=== PATIENT | male | born 1970 | race Caucasian/White ===

== ENCOUNTER → 2016-12-31 | Outpatient (CLI) | payer MEDICARE ==
--- NOTE | 2016-12-31 20:26 | CT ---
EXAMINATION TYPE: CT soft tissue neck w con DATE OF EXAM: 12/31/2016 7:56 PM COMPARISON: NONE HISTORY: Mid to right anterior neck mass. CT DLP: 584.00 mGycm Automated exposure control for dose reduction was used. CONTRAST: CT scan of the neck is performed following with IV Contrast, patient injected with 100 mL of Omnipaqu e 300. Axial images are obtained, coronal and sagittal reformatted images are reviewed. FINDINGS: There is normal branching pattern of the great vessels on the aortic arch. There is bilateral arteria l flow in the vertebral arteries. There is patency of the carotid arteries and jugular veins. Thyroid gland is symmetric. There is no evidence of a pharyngeal mass. Epiglottis appears normal. The tonsil s and adenoids appear normal. There is opacification of the right side of the frontal sinus. There is no sign of an orbital mass. There is some dural calcification over the right frontal lobe. There is some enlargement of the ventricles. There are a few anterior triangle right cervical lymph nodes. There is a posterior triangle cervical lymph node on the left side. Lymph nodes measure up to 10 mm. Parotid glands are symmetric. Submandibular salivary glands are symmetric. IMPRESSION: There are a few cervical lymph nodes of doubtful significance. Right frontal sinusitis. Dural calcification and thinning of the inner table over the right frontal l obe of uncertain significance. Normal pressure type hydrocephalus. Comparison with an old exam would be helpful.
== END | disposition home or self-care (01) ==
LOC: RADCTMAIN 19:12 → EEVIPCON 19:40
PROVIDERS: ATTEND Internal Medicine
DX: R22.1 Localized swelling, mass and lump, neck (principal)
CPT/HCPCS: 70491; Q9967

== ENCOUNTER 2017-12-05 16:11 | Inpatient (IN) | payer MEDICARE ==
--- NOTE | 2017-12-05 16:20 | ED ---
General Adult HPI - General Stated complaint: Fall - History of Present Illness Initial comments: Dictation was produced using [employer] dictation software. please excuse any grammatical, word or spelling errors. Chief Complaint: 46-year-old male presents via transfer from [facility] for left hip fracture History of Present Illness: Suffered a fall approximately 11:30 AM today. He tripped that of his family members car. He states that he had severe pain to his left hip. He was brought to [facility] ER were x-rays and CTs were obtained. He did have findings of subcapital fracture on CT imaging. He was transferred here for higher level of care given that we have orthopedic surgery The ROS documented in this emergency department record has been reviewed and confirmed by me. Those systems with pertinent positive or negative responses have been documented in the HPI. All other systems are other negative and/or noncontributory. - Related Data Home Medications Medication Instructions Recorded Confirmed Doxycycline [Vibramycin] 50 mg PO DAILY 12/05/17 12/05/17 QUEtiapine [SEROquel] 50 mg PO BID 12/05/17 12/05/17 Sertraline [Zoloft] 200 mg PO DAILY 12/05/17 12/05/17 amLODIPine BESYLATE/BENAZEPRIL 1 cap PO DAILY 12/05/17 12/05/17 [Lotrel 5-20 mg Capsule] carBAMazepine [TEGretol] 300 mg PO BID@1200,1800 12/05/17 12/05/17 carBAMazepine [TEGretol] 400 mg PO QAM 12/05/17 12/05/17 Allergies Allergy/AdvReac Type Severity Reaction Status Date / Time adhesive tape Allergy Unknown Rash/Hives Verified 12/05/17 16:39 Penicillins Allergy Rash/Hives Verified 12/05/17 16:39 Review of Systems ROS Statement: Those systems with pertinent positive or pertinent negative responses have been documented in the HPI. ROS Other: All systems not noted in ROS Statement are negative. General Exam - General Exam Comments Initial Comments: PHYSICAL EXAM: General Impression: Alert and oriented x3, not in acute distress HEENT: Normocephalic atraumatic, extra-ocular movements intact, pupils equal and reactive to light bilaterally, mucous membranes moist. Cardiovascular: Heart regular rate and rhythm, S1&S2 audible, no murmurs, rubs or gallops Chest: Lungs clear to auscultation bilaterally, no rhonchi, no wheeze, no rales Abdomen: Bowel sounds present, abdomen soft, non-tender, non-distended, no organomegaly Musculoskeletal: Pulses present and equal in all extremities, no peripheral edema, tenderness to palpation over the left hip, mildly shortened left lower extremity. Neurovascularly intact Motor: Power 5/5 bilaterally, no focal deficits noted Neurological: CN II-XII grossly intact, no focal motor or sensory deficits noted Skin: Intact with no visualized rashes Psych: Normal affect and mood Course Vital Signs 12/05/17 12/05/17 16:16 17:26 Temperature 100.5 F H 101.0 F H Pulse Rate 91 91 Respiratory 18 16 Rate Blood Pressure 138/84 O2 Sat by Pulse 97 98 Oximetry Medical Decision Making - Medical Decision Making ED course: 46-year-old male with clinical presentation of left hip fracture. Vital signs upon arrival shows low-grade temperature 100.5. Rest of vital signs unremarkable. Preop labs were obtained. CBC unremarkable. Metabolic panel unremarkable. Pending coag panel. Local x-ray was obtained showing subcapital fracture of left proximal femur. Dr. Renee from orthopedic surgeries at bedside with plans for operative intervention and internal medicine to be on consult. Repeat vital signs were obtained showing increased fever. It is unclear what is causing his fever at this time. Blood cultures and urine cultures were obtained. She denies any coughing or chest pain symptoms. No emergency indication At this time. Admitted to orthopedic surgery with internal medicine on consult - Lab Data Result diagrams: 12/05/17 16:51 12/05/17 16:51 Lab Results 12/05/17 12/05/17 Range/Units 16:51 16:51 WBC 9.6 (3.8-10.6) k/uL RBC 4.49 (4.30-5.90) m/uL Hgb 12.9 L (13.0-17.5) gm/dL Hct 38.8 L (39.0-53.0) % MCV 86.3 (80.0-100.0) fL MCH 28.8 (25.0-35.0) pg MCHC 33.3 (31.0-37.0) g/dL RDW 13.1 (11.5-15.5) % Plt Count 218 (150-450) k/uL Neutrophils % 82 % Lymphocytes % 11 % Monocytes % 5 % Eosinophils % 1 % Basophils % 0 % Neutrophils # 7.9 H (1.3-7.7) k/uL Lymphocytes # 1.1 (1.0-4.8) k/uL Monocytes # 0.5 (0-1.0) k/uL Eosinophils # 0.1 (0-0.7) k/uL Basophils # 0.0 (0-0.2) k/uL Sodium 139 (137-145) mmol/L Potassium 3.9 (3.5-5.1) mmol/L Chloride 106 (98-107) mmol/L Carbon Dioxide 25 (22-30) mmol/L Anion Gap 8 mmol/L BUN 13 (9-20) mg/dL Creatinine 0.72 (0.66-1.25) mg/dL Est GFR (CKD-EPI)AfAm >90 (>60 ml/min/1.73 sqM) Est GFR (CKD-EPI)NonAf >90 (>60 ml/min/1.73 sqM) Glucose 111 H (74-99) mg/dL Calcium 8.6 (8.4-10.2) mg/dL Disposition Clinical Impression: Fracture of hip Disposition: ADMITTED IP TO THIS HOSP Referrals: Edson Rangel MD [Primary Care Provider] - 1-2 days Decision Time: 18:06
[2017-12-05 16:58] LABS: Basophils % (A) 0 %; Eosinophils # (A) 0.1 k/uL (0-0.7); Eosinophils % (A) 1 %; HCT 38.8 % (39.0-53.0); HGB 12.9 gm/dL (13.0-17.5); Lymphocytes # (A) 1.1 k/uL (1.0-4.8); Lymphocytes % (A) 11 %; MCH 28.8 pg (25.0-35.0); MCHC 33.3 g/dL (31.0-37.0); MCV 86.3 fL (80.0-100.0); Mean Platelet Volume 6.8; Monocytes # (A) 0.5 k/uL (0-1.0); Monocytes % (A) 5 %; Neutrophils # (A) 7.9 k/uL (1.3-7.7); Neutrophils % (A) 82 %; Platelet Count 218 k/uL (150-450); RBC 4.49 m/uL (4.30-5.90); RDW 13.1 % (11.5-15.5); WBC 9.6 k/uL (3.8-10.6)
[2017-12-05 17:06] LABS: Anion Gap 8 mmol/L; Blood Urea Nitrogen 13 mg/dL (9-20); Calcium 8.6 mg/dL (8.4-10.2); Carbon Dioxide 25 mmol/L (22-30); Chloride 106 mmol/L (98-107); Glucose 111 mg/dL (74-99); Potassium 3.9 mmol/L (3.5-5.1); Sodium 139 mmol/L (137-145)
[2017-12-05 17:15] LABS: INR 1.1 (<1.2); Prothrombin Time 10.7 sec (9.0-12.0)
--- NOTE | 2017-12-05 17:15 | XR ---
EXAMINATION TYPE: XR Hip Limited LT DATE OF EXAM: 12/05/2017 CLINICAL HISTORY: Fall injury with pain. TECHNIQUE: Single frontal view of the left hip is obtained. COMPARISON: Outside pelvic x-ray earlier today. FINDINGS: There is redemonstration of acute subcapital fracture with impaction of the left proximal femur. No hip joint dislocation is evident. The overlying soft tissue appears unremarkable. IMPRESSION: There is an acute impacted subcapital fracture left proximal femur. (Initial encounter close type post traumatic fracture)
[2017-12-05 18:20] LABS: Appearance,Urine Clear (Clear); Bilirubin,Urine Negative (Negative); Blood,Urine Negative (Negative); Color,Urine Yellow; Glucose,Urine (UA) Negative (Negative); Ketones,Urine Negative (Negative); Leukocyte Esterase,Urine Negative (Negative); Nitrite,Urine Negative (Negative); PH, Urine 5.5 (5.0-8.0); Protein,Urine Negative (Negative); Specific Gravity,Urine 1.014 (1.001-1.035); Urobilinogen,Urine <2.0 mg/dL (<2.0)
[2017-12-05] MEDS ORDERED: NALOXONE 0.4 MG/ML 1 ML VIAL IV PRN (18:31)
--- NOTE | 2017-12-05 18:58 | XR ---
EXAMINATION TYPE: XR chest 2V DATE OF EXAM: 12/05/2017 COMPARISON: NONE HISTORY: Presurgical study. New hip fracture. TECHNIQUE: Frontal and lateral views of the chest are obtained. FINDINGS: There is no focal air space opacity, pleural effusion, or pneumothorax seen. The cardiac silhouette size is within normal limits. Advanced degenerative change left glenohumeral joint is note d. IMPRESSION: No acute cardiopulmonary process.
[2017-12-05] MEDS ORDERED: ACETAMINOPHEN TAB 500 MG TAB PO STA (19:01)
[2017-12-05] MEDS ORDERED: HYDROcodone/APAP 5-325MG 1 EACH TAB PO PRN (20:24)
[2017-12-05] MEDS ORDERED: MAGNESIUM HYDROXIDE 2,400 MG/10 ML CUP PO PRN (20:24)
[2017-12-05] MEDS ORDERED: MORPHINE SULFATE 4 MG/ML SYRINGE IV PRN (20:24)
[2017-12-05] MEDS ORDERED: ONDANSETRON 4 MG/2 ML VIAL IVP PRN (20:24)
[2017-12-05] MEDS ORDERED: MAG HYDROX/AL HYDROX/SIMETH 30 ML CUP PO PRN (20:24)
[2017-12-05] MEDS ORDERED: DOCUSATE 100 MG CAP PO PRN (20:24)
--- NOTE | 2017-12-05 21:05 | P.CONS ---
History of Present Illness - Reason for Consult Medical management and preoperative evaluation - Chief Complaint Fall and left hip fracture - History of Present Illness This is a 46-year-old male who has history of traumatic brain injury since childhood and subsequent epilepsy, hypertension who was admitted after he sustained accidental fall and left hip fracture. Patient was in his usual state of health when he today tripped and fell. There was no loss of consciousness chest pain or shortness of breath described. There was no head injury described. He suffered immediate left hip pain and was was not able to get up or bear weight. He was transferred to emergency department where x-ray showed a left hip subcapital fracture of the femur. He is admitted for surgical intervention tomorrow. Emergency Department his blood work showed normal CBC and electrolytes and renal function. His blood pressure was in 150s range with normal heart rate. He was found to be and elevated temperature of 100.1-101 without any tachycardia or shakes or regular described. Chest x-ray was unremarkable. EKG is currently pending. He patient himself denies any particular complaints. More specifically he denies any headache or sore throat nonfocal congestion recent illnesses, neck pain, shortness of breath, cough, wheezing, chest pain or palpitations, pain with deep breaths, abdominal pain, nausea or vomiting, diarrhea or constipation , pain in the stoma or the right upper quadrant with food, testicular pain swelling or penile discharge, skin rashes or any joint pain or swelling except the pain in the left hip. He denies any night sweats, weight or appetite losses , sick contacts, shakes chills or rigors. Patient does not have any significant cardiac or pulmonary history. He has hypertension which is taking amlodipine.. He denies any chest pain or shortness of breath. He states that he can usually normally climb one or 2 flights of stairs and walk around quite a bit without any shortness of breath. He does not take any aspirin. He is a lifelong nonsmoker. Not have history of asthma. His home list of medications shows Tegretol, Review of Systems REVIEW OF SYSTEMS: CONSTITUTIONAL: No fever or chills HEENT: No changes in vision or voice CARDIOVASCULAR: no chest pain or abnormal heart beats, or any swelling in ankles or feet. RESPIRATORY: No wheezing or coughing. GASTROINTESTINAL: No abdominal pain, no nausea no vomiting no constipation or diarrhea GENITOURINARY: no any urinary urgency, frequency or burning, and there has been no blood in her urine. no flank pain. MUSCULOSKELETAL: Except left hip he notes full range of motion of all her joints without pain or swelling. NEUROLOGICAL: , no headache. no vision changes, or fainting. No numbness or tingling. Past Medical History Past Medical History: Hypertension, Seizure Disorder Additional Past Medical History / Comment(s): hip dysplasia History of Any Multi-Drug Resistant Organisms: None Reported Past Surgical History: No Surgical Hx Reported Past Anesthesia/Blood Transfusion Reactions: No Reported Reaction Past Psychological History: No Psychological Hx Reported Smoking Status: Never smoker Past Alcohol Use History: None Reported Past Drug Use History: None Reported Medications and Allergies Home Medications Medication Instructions Recorded Confirmed Type Doxycycline [Vibramycin] 50 mg PO DAILY 12/05/17 12/05/17 History QUEtiapine [SEROquel] 50 mg PO BID 12/05/17 12/05/17 History Sertraline [Zoloft] 200 mg PO DAILY 12/05/17 12/05/17 History amLODIPine BESYLATE/BENAZEPRIL 1 cap PO DAILY 12/05/17 12/05/17 History [Lotrel 5-20 mg Capsule] carBAMazepine [TEGretol] 300 mg PO BID@1500,2200 12/05/17 12/05/17 History carBAMazepine [TEGretol] 400 mg PO QAM 12/05/17 12/05/17 History Allergies Allergy/AdvReac Type Severity Reaction Status Date / Time adhesive tape Allergy Unknown Rash/Hives Verified 12/05/17 16:39 Penicillins Allergy Rash/Hives Verified 12/05/17 16:39 Physical Exam Vitals: Vital Signs Temp Pulse Resp BP Pulse Ox 12/05/17 19:06 100.2 F H 98 18 151/94 95 12/05/17 17:26 101.0 F H 91 16 98 12/05/17 16:16 100.5 F H 91 18 138/84 97 Intake and Output 12/05/17 12/05/17 12/05/17 06:59 14:59 22:59 Other: Weight 95.254 kg Vital Signs: I have reviewed the vital signs. GENERAL: Well-nourished, Well-developed , no apparent distress, cooperative Eyes: PERRL, extraoculry movements intact, clear conjunctiva Head: : Atraumatic external nose and ears, oropharyngeal mucosa is moist without lesions or exudates Neck: Symmetric, trachea midline, No thyromegaly, no masses or neck vain pulsation, no neck rigidity CVS: +S1/S2, No murmurs or gallops. Peripheral pulses 2+ and equal in all extremities. RESP: Unlabored respiratory effort. Clear to auscultation bilaterally. Abdomen: Bowel sounds present in all 4 quadrants, Soft to palpation, Nontender/ Nondistended, No hepatosplenomegaly, no hernias or masses, no CVA tnderness Musculoskeletal: Extremities w/o deformity, No cyanosis or clubbing, no joint swelling Skin: Warm, Dry. No rashes or lesions Neuro: infrastructure tech II-XII grossly intact, motor strenght 5/5 i upper and lower extremities, no clonus, he does have some involuntary myoclonic movements Psych: Awake, Alert, & Oriented (AAO) x3 Appropriate mood and affect Results CBC & Chem 7: 12/05/17 16:51 12/05/17 16:51 Labs: Abnormal Lab Results - Last 24 Hours (Table) 12/05/17 12/05/17 Range/Units 16:51 16:51 Hgb 12.9 L (13.0-17.5) gm/dL Hct 38.8 L (39.0-53.0) % Neutrophils # 7.9 H (1.3-7.7) k/uL Glucose 111 H (74-99) mg/dL Abdominal x-ray: report reviewed Assessment and Plan Plan: 1. Left hip fracture status post accidental fall Pain control Physical and occupational therapy DVT prophylaxis Plan for orthopedic intervention tomorrow Patient does not have any active cardiopulmonary symptoms. His functional status is good. His past medical history does not reveal any history of cardiac or pulmonary diseases. He is scheduled for moderate risk surgical intervention. From internal medicine standpoint , Patient is at acceptable risk and may proceed with the planned surgical intervention. We'll continue his antihypertensive therapy. He does not have indications for beta blockage therapy. 2. Hypertension Elevated blood pressure due to stress and pain and he missed his amlodipine this morning We'll continue his amlodipine 3. Epilepsy Continue Tegretol 4. History of traumatic brain injury He may continue his Seroquel at this point of time and we will hold his Zoloft before surgery and may resume after Patient is a full code History the decision-maker is his mother Expected length of stay 2 or more midnights Time with Patient: Greater than 30
[2017-12-05] MEDS: carBAMazepine 200 MG TAB PO SCH (21:06)
[2017-12-05] MEDS: QUEtiapine 50 MG TAB PO SCH (21:06)
--- NOTE | 2017-12-05 22:19 | HP ---
HISTORY AND PHYSICAL CHIEF COMPLAINT: Left hip pain. HISTORY OF PRESENT ILLNESS: The patient is a 46-year-old gentleman who presents after falling today after he tripped. He was unable to bear weight after the injury on the left leg. His family notes he ambulates minimally. PAST MEDICAL HISTORY: Significant for closed head injury with subsequent seizure disorder. PAST SURGICAL HISTORY: Significant for previous tendon release, cranial surgery for osteomyelitis, status post shunt, and previous tracheotomy x2. CURRENT MEDICATIONS: Are reviewed. ALLERGIES: ALSO, HE HAS ALLERGIES TO PENICILLIN AND ADHESIVE TAPE. SOCIAL HISTORY: Negative for current tobacco or alcohol use. He does live with his parents. FAMILY HISTORY: Family history is noncontributory. REVIEW OF SYSTEMS: Sixteen point review of systems otherwise reviewed and is noncontributory. PHYSICAL EXAMINATION: On examination, the patient currently has a temperature of 101.0 with stable vital signs. He is in mild distress secondary to left hip pain. He is nontender about the cervical, thoracic, and lumbar spine. He has a flexion contracture of the left elbow and wrist. He does have atrophy of the left lower extremity. He has pain with log roll of the left hip. There is mild shortening of the left hip. He has no pain with log roll of the right hip. He is nontender about both knees, ankles and feet. X-rays and CT scan of the left hip show a valgus impacted left subcapital femoral neck fracture. IMPRESSION: 1. Left impacted-displaced subcapital femoral neck fracture. 2. History of seizure disorder. 3. History of closed head injury with left upper extremity contracture and atrophy of the left lower extremity. RECOMMENDATIONS: I talked to the patient and his family at length regarding his condition and treatment options. At this point, his options include closed reduction and pinning versus hemiarthroplasty versus total hip arthroplasty. With his current level of function, they opted to proceed with hemiarthroplasty. We will likely proceed with that tomorrow if medically stable. We will ask for preoperative medical clearance as well as perform the appropriate preoperative testing. MMODL / IJN: [id number] /
[2017-12-06] MEDS: LACTATED RINGERS 1,000 ML IV SCH ×2 (02:49→08:57)
[2017-12-06] MEDS: carBAMazepine 200 MG TAB PO SCH ×3 (08:17→21:27)
[2017-12-06 08:25] LABS: Basophils % (A) 0 %; Eosinophils % (A) 0 %; HGB 11.9 gm/dL (13.0-17.5); Lymphocytes # (A) 1.1 k/uL (1.0-4.8); Lymphocytes % (A) 19 %; MCH 28.1 pg (25.0-35.0); MCHC 32.3 g/dL (31.0-37.0); Mean Platelet Volume 6.8; Monocytes # (A) 0.3 k/uL (0-1.0); Monocytes % (A) 6 %; Neutrophils # (A) 4.1 k/uL (1.3-7.7); Neutrophils % (A) 74 %; Platelet Count 192 k/uL (150-450); RBC 4.25 m/uL (4.30-5.90); RDW 12.9 % (11.5-15.5); WBC 5.6 k/uL (3.8-10.6)
[2017-12-06 08:33] LABS: Anion Gap 6 mmol/L; Blood Urea Nitrogen 11 mg/dL (9-20); Calcium 8.4 mg/dL (8.4-10.2); Carbon Dioxide 26 mmol/L (22-30); Chloride 108 mmol/L (98-107); Glucose 95 mg/dL (74-99); Potassium 3.8 mmol/L (3.5-5.1); Sodium 140 mmol/L (137-145)
[2017-12-06] MEDS: HEPARIN SODIUM,PORCINE 5,000 UNIT/ML 1 ML VIAL SQ SCH ×2 (09:05→16:23)
[2017-12-06] MEDS: QUEtiapine 50 MG TAB PO SCH ×2 (09:05→21:27)
[2017-12-06] MEDS: LISINOPRIL 20 MG TAB PO SCH (09:05)
[2017-12-06] MEDS: amLODIPine 5 MG TAB PO SCH (09:05)
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
[2017-12-06] MEDS ORDERED: LIDOCAINE 1% INJ 10MG/ML (20 ML MDV) ONE (11:16)
[2017-12-06] MEDS ORDERED: MIDAZOLAM 2 MG/2 ML VIAL ONE (11:16)
[2017-12-06] MEDS ORDERED: LACTATED RINGERS 1,000 ML IV ONE ×2 (11:16→12:21)
[2017-12-06] MEDS ORDERED: SUCCINYLCHOLINE CHLORIDE 100 MG/5 ML SYR IV ONE (11:16)
[2017-12-06] MEDS ORDERED: PROPOFOL 10 MG/ML 20 ML VIAL IV ONE (11:16)
[2017-12-06] MEDS ORDERED: PHENYLEPHRINE-0.9% NACL SYG 1 MG/10 ML SYRINGE ONE (11:16)
[2017-12-06] MEDS ORDERED: fentaNYL (PF) 50 MCG/ML 2 ML AMP ONE (11:16)
[2017-12-06] MEDS ORDERED: SODIUM CHLORIDE 0.9% 50 ML with ceFAZolin 2,000 MG IV ONE ×2 (11:57)
[2017-12-06] MEDS ORDERED: ceFAZolin 3,000 MG in SODIUM CHLORIDE 0.9% IRRIGATIO 3,000 ML IRRIGATION ONE (12:12)
--- NOTE | 2017-12-06 13:23 | P.OP ---
Date of Procedure: 12/06/17 Preoperative Diagnosis: Displaced left subcapital femoral neck fracture Postoperative Diagnosis: Same Procedure(s) Performed: Left hip jkmdyghnfboiyoni-niweg-dya Implants: Depuy Corail size 10 press-fit collared femoral stem, -3 neck, 47 mm unipolar head. Anesthesia: KALPESH Surgeon: Lobo Renee Signal Timer #1: Fidel Umanzor Estimated Blood Loss (ml): 75 Pathology: other (Femoral head) Condition: stable Disposition: PACU Indications for Procedure: The patient is a 46-year-old male who presents after falling injuring his left hip. He ambulates minimally and has a history of a closed head injury. Upon evaluation he is noted to have a displaced left subcapital femoral neck fracture. He discussion of the risks and benefits of operative intervention was made with the patient and his family. They opted to proceed. Operative options were discussed to include closed reduction and pinning, hemiarthroplasty , versus total hip arthroplasty. With his functional level, and the degree of initial displacement I recommended proceeding with hemiarthroplasty. Specific risks of the procedure to include infection, neurovascular injury, development of blood clots, possible leg length discrepancy, possible dislocation need for subsequent procedures was discussed. Informed consent was obtained. Operative Findings: As below Description of Procedure: The patient was brought to the operating room, and a spinal anesthetic was attempted. This was unsuccessful therefore he underwent general anesthetic. He was then placed in the lateral decubitus position with the pelvis stabilized perpendicular to the floor with a pegboard. The bony prominences were appropriately padded. The left hip was prepped and draped in normal fashion. A 12 cm incision was then made centered over the greater trochanter extending distally in line with the femoral shaft and proximally to level ASIS. The skin and subcu changed tissues were divided sharply. Electrocautery was used for hemostasis. The fascia paola and gluteus herlinda fascia was split in line with the skin incision. The muscle fibers were bluntly dissected proximally. The anterior and posterior margins of the gluteus medius muscles identified and the anti-two thirds detached from the greater trochanter with electrocautery. The gluteus minimus tendon was identified and detached in a similar fashion. A T- shaped capsulotomy is performed. The capsular flaps were tagged with #2 Ethibond suture. The femoral neck fracture was identified. A lower neck cut was made at a 45 angle the shaft with a sagittal saw proximal 1/2 cm above the level of the lesser trochanter. The femoral head was then extracted with a corkscrew. The acetabular was inspected. No significant chondral injury was noted. Attention was then paid towards preparing the proximal femur. A box chisel was used to open the metaphyseal region. A canal finder was used to find the femoral canal. Sequential broaching was performed up to a size 10 broach with the leg perpendicular to the floor in 15 of anteversion. The medial calcar was fashion with a calcar mill. A trial -3 neck/47 mm unipolar head was then placed. The hip was gently relocated. It was taken through range of motion. I had good stability in flexion and extension with internal and external rotation. I felt there was adequate bahai of soft tissue tension. Of note he did have significant preoperative shortening of the left leg. The trial components were then removed. The final femoral stem was inserted again at 15 of anteversion with the leg perpendicular to the floor. There was good rotational stability. The -3 neck and 47 mm unipolar head was gently impacted. The hip was gently relocated. Again it was taken through range of motion and felt to be stable in flexion and extension with internal and external rotation. Pulsatile lavage was utilized. The capsular layer was closed with #2 Ethibond suture. The gluteus medius and enemas tendons were reattached the greater trochanter with #2 Ethibond suture. The fascia paola and gluteus herlinda fascia was closed with #2 Ethibond suture. He had minimal drainage therefore a deep drain was not placed. The subcutaneous tissues were reapproximated interrupted 2-0 Vicryl sutures. The skin was reapproximated with 3-0 subcuticular strata fix suture. Skin tape and adhesive was applied. A sterile dressing was applied. The patient was then awoken from general anesthesia and transferred to recovery room in fair condition. Blood loss was estimated 75 mL. No complications were incurred. Sponge and needle counts were correct at end of the case.
[2017-12-06] MEDS ORDERED: HYDROmorphone 1 MG/ML 1 ML SYRINGE IVP ONE ×2 (13:35→13:50)
--- NOTE | 2017-12-06 13:42 | XR ---
EXAMINATION TYPE: XR Hip Limited LT , ONE VIEW DATE OF EXAM ORDERED: 12/06/2017 HISTORY: s/p hemiarthroplasty. COMPARISON: None. FINDINGS: A left hip hemiarthroplasty is been performed. Prosthetic elements appear in good position in this single frontal projection. IMPRESSION: STATUS POST LEFT HIP ARTHROPLASTY.
[2017-12-06] MEDS ORDERED: ONDANSETRON 4 MG/2 ML VIAL IVP ONE (13:54)
[2017-12-06] MEDS ORDERED: HYDROcodone/APAP 7.5-325MG 1 EACH TAB PO PRN (18:44)
[2017-12-06] MEDS ORDERED: HYDROmorphone 1 MG/ML 1 ML SYRINGE IVP PRN (18:45)
[2017-12-06] MEDS: HYDROcodone/APAP 7.5-325MG 1 EACH TAB PO PRN (19:56)
[2017-12-06] MEDS: ceFAZolin IN SWFI 2 GM/20 ML SYRINGE IVP SCH (19:57)
[2017-12-06] MEDS: HYDROmorphone 1 MG/ML 1 ML SYRINGE IVP PRN (21:01)
[2017-12-07] MEDS: LACTATED RINGERS 1,000 ML IV SCH ×2 (01:30→14:00)
[2017-12-07] MEDS: ceFAZolin IN SWFI 2 GM/20 ML SYRINGE IVP SCH (02:52)
[2017-12-07] MEDS: HEPARIN SODIUM,PORCINE 5,000 UNIT/ML 1 ML VIAL SQ SCH ×4 (02:52→23:10)
[2017-12-07] MEDS: ACETAMINOPHEN TAB 325 MG TAB PO PRN (02:52)
[2017-12-07] MEDS: HYDROmorphone 1 MG/ML 1 ML SYRINGE IVP PRN (02:53)
[2017-12-07 08:36] LABS: Basophils % (A) 0 %; Eosinophils # (A) 0.1 k/uL (0-0.7); Eosinophils % (A) 1 %; HCT 34.7 % (39.0-53.0); HGB 12.2 gm/dL (13.0-17.5); Lymphocytes # (A) 0.6 k/uL (1.0-4.8); Lymphocytes % (A) 9 %; MCH 30.2 pg (25.0-35.0); MCHC 35.1 g/dL (31.0-37.0); Mean Platelet Volume 6.8; Monocytes # (A) 0.3 k/uL (0-1.0); Monocytes % (A) 5 %; Neutrophils # (A) 5.3 k/uL (1.3-7.7); Neutrophils % (A) 85 %; Platelet Count 210 k/uL (150-450); RBC 4.04 m/uL (4.30-5.90); RDW 12.7 % (11.5-15.5); WBC 6.3 k/uL (3.8-10.6)
[2017-12-07] MEDS: QUEtiapine 50 MG TAB PO SCH ×2 (08:46→21:24)
[2017-12-07] MEDS: carBAMazepine 200 MG TAB PO SCH ×3 (08:46→21:24)
[2017-12-07] MEDS: SERTRALINE 100 MG TAB PO SCH (08:47)
[2017-12-07] MEDS ORDERED: DIAZEPAM 2 MG TAB PO STA (11:04)
[2017-12-07] MEDS: HYDROcodone/APAP 7.5-325MG 1 EACH TAB PO PRN (12:57)
[2017-12-07 13:46] LABS: Appearance,Urine Clear (Clear); Bacteria,Urine Rare /hpf; Bilirubin,Urine Negative (Negative); Blood,Urine Negative (Negative); Color,Urine Yellow; Glucose,Urine (UA) Negative (Negative); Ketones,Urine 1+ (Negative); Leukocyte Esterase,Urine Small (Negative); Mucus,Urine Occasional /hpf; Nitrite,Urine Negative (Negative); Protein,Urine 1+ (Negative); Specific Gravity,Urine 1.029 (1.001-1.035); Squamous Epithelial Cell,Urine <1 /hpf (0-4)
--- NOTE | 2017-12-07 14:31 | XR ---
EXAMINATION TYPE: XR chest 1V DATE OF EXAM: 12/07/2017 COMPARISON: Prior chest x-ray 12/05/2017 HISTORY: Shortness of breath TECHNIQUE: Single frontal view of the chest is obtained. FINDINGS: There is elevation of the right hemidiaphragm. Retrocardiac density is questioned. Arthrop athy noted in the left shoulder, distortion of the left humerus may be due to old trauma. Cardiomedia stinal silhouette, pulmonary vascularity and jose daniel not significantly changed accounting for patient ro tation. No evident airspace disease, pneumothorax, or pleural effusion. IMPRESSION: Exam is rotated. There is stable elevation of right hemidiaphragm. Consider follow-up PA and lateral chest x-ray for better evaluation as indicated. Possible left lower lobe atelectasis, co rrelate to exclude pneumonia.
[2017-12-07] MEDS: KETOROLAC 30 MG/ML 1 ML VIAL IVP PRN (15:52)
[2017-12-07] MEDS: LISINOPRIL 20 MG TAB PO SCH (16:35)
[2017-12-07] MEDS: amLODIPine 5 MG TAB PO SCH (16:35)
--- NOTE | 2017-12-07 17:16 | P.PN ---
Subjective Progress Note Date: 12/07/17 Principal diagnosis: Status post left hip hemiarthroplasty Patient seen today resting in his hospital bed, he appears comfortable. He does note some increasing pain in the left hip. Ambulated minimally. Denies any chest pain or shortness of breath. Objective - Vital Signs Vital signs: Vital Signs Temp 99.2 F 12/07/17 15:20 Pulse 102 H 12/07/17 15:20 Resp 16 12/07/17 15:20 BP 110/68 12/07/17 15:20 Pulse Ox 95 12/07/17 15:20 Intake & Output 12/06/17 12/07/17 12/07/17 18:59 06:59 18:59 Intake Total 1831 262.5 715 Output Total 200 500 295 Balance 1631 -237.5 420 Intake: IV 1651 375 Lactated Ringers 1,000 ml 375 @ 75 mls/hr IV .[id number] [facility] Rx#:[id number] Intake, IV Titration 262.5 Amount Lactated Ringers 1,000 ml 262.5 @ 75 mls/hr IV .[id number] [facility] Rx#:[id number] Oral 180 340 Output: Urine 125 500 295 2-way Urethral 295 Estimated Blood Loss 75 Other: Voiding Method Indwelling Catheter Indwelling Catheter Indwelling Catheter - Exam Left lower extremity: Incision is clean, dry, and intact. The prineo tape is in good condition. There is minimal soft tissue swelling and ecchymosis surrounding the medial and lateral aspects of the incision. Calf is soft, no tenderness with palpation. Plantar flexion, dorsiflexion, EHL, FHL are intact. Sensory exam to light touch throughout the extremity is intact, dorsal pedis pulses 2+. - Labs CBC & Chem 7: 12/07/17 08:16 12/06/17 07:44 Labs: Abnormal Lab Results - Last 24 Hours (Table) 12/07/17 12/07/17 Range/Units 08:16 13:33 RBC 4.04 L (4.30-5.90) m/uL Hgb 12.2 L (13.0-17.5) gm/dL Hct 34.7 L (39.0-53.0) % Lymphocytes # 0.6 L (1.0-4.8) k/uL Urine Protein 1+ H (Negative) Urine Ketones 1+ H (Negative) Ur Leukocyte Esterase Small H (Negative) Urine WBC 9 H (0-5) /hpf Urine Bacteria Rare H (None) /hpf Urine Mucus Occasional H (None) /hpf Microbiology - Last 24 Hours (Table) 12/05/17 17:55 Urine Culture - Final Urine,Voided 12/05/17 16:46 Blood Culture - Preliminary Blood No Growth after 24 hours Assessment and Plan Plan: Assessment: Postoperative day 1 status post left hip hemiarthroplasty Plan: Pain control, continue current medication Weight-bear as tolerated with therapy GI and DVT prophylaxis, per medical recommendation Medical recommendations Encourage incentive spirometer Discharge planning: Patient will be discharged to rehab in stable Time with Patient: Less than 30
[2017-12-07] MEDS ORDERED: AZITHROMYCIN 500 MG in SODIUM CHLORIDE 0.9% 250 ML IVPB STA (19:53)
--- NOTE | 2017-12-07 19:56 | P.PN ---
Subjective Progress Note Date: 12/07/17 Principal diagnosis: hip pain Patient is a 47-year-old male with a past medical history of traumatic brain injury since childhood with subsequent epilepsy and hypertension who presented after a trip and fall accident. He was found to have a left hip fracture. He was admitted to Dr. Herbert and we were consulted for medical management. He subsequently underwent a left total hip hemiarthroplasty on 12/06. He has been having fevers up to 101. Patient seen and examined at bedside. He complains of left hip pain. He states none of the medicines have been helping. He has been coughing. He denies any chest pain, shortness breath, nausea, vomiting, diarrhea, or constipation. Objective - Vital Signs Vital signs: Vital Signs Temp 99.4 F 12/07/17 07:00 Pulse 94 12/07/17 07:00 Resp 16 12/07/17 07:00 BP 112/69 12/07/17 07:00 Pulse Ox 92 L 12/07/17 07:00 Intake & Output 12/06/17 12/07/17 12/07/17 18:59 06:59 18:59 Intake Total 1831 262.5 120 Output Total 200 500 120 Balance 1631 -237.5 0 Intake: IV 1651 Intake, IV Titration 262.5 Amount Lactated Ringers 1,000 ml 262.5 @ 75 mls/hr IV .[id number] [facility]ACED [facility] Rx#:[id number] Oral 180 120 Output: Urine 125 500 120 2-way Urethral 120 Estimated Blood Loss 75 Other: Voiding Method Indwelling Catheter Indwelling Catheter Indwelling Catheter - Exam General: non toxic, no distress, appears at stated age Derm: warm, dry Head: atraumatic, normocephalic, symmetric Eyes: EOMI, no lid lag, anicteric sclera Mouth: no lip lesion, mucus membranes moist Cardiovascular: S1-S2 regular without murmur, no murmur, positive posterior tibial pulse bilateral, Lungs: Free spent some bilateral bases, no rhonchi, no rales , no accessory muscle use Abdominal: soft, nontender to palpation, no guarding, no appreciable organomegaly Ext: no gross muscle atrophy, no edema, no contractures Neuro: CN II-XI grossly intact, no focal neuro deficits Psych: Alert, oriented, anxious appearing - Labs CBC & Chem 7: 12/07/17 08:16 12/06/17 07:44 Labs: Abnormal Lab Results - Last 24 Hours (Table) 12/07/17 Range/Units 08:16 RBC 4.04 L (4.30-5.90) m/uL Hgb 12.2 L (13.0-17.5) gm/dL Hct 34.7 L (39.0-53.0) % Lymphocytes # 0.6 L (1.0-4.8) k/uL Microbiology - Last 24 Hours (Table) 12/05/17 17:55 Urine Culture - Final Urine,Voided 12/05/17 16:46 Blood Culture - Preliminary Blood No Growth after 24 hours Assessment and Plan Assessment: Pneumonia, Left lower lobe -Check chest x-ray today consistent with atelectasis versus pneumonia -White blood cell count has been normal -Aggressive pulmonary hygiene with incentive spirometer -start rocephin and zithromax (Patient PCN allergy with hives will try rocephin) -Repeat chest x-ray in 3-5 days Left hip fracture status post intertrochanteric nailing -DVT prophylaxis per orthopedic surgery -Pain control, add Valium -Ask orthopedic surgery if they would be okay with Toradol Seizure disorder -Continue with Tegretol Hypertension -Blood pressures currently soft -Hold amlodipine and lisinopril today -Follow blood pressures Plan is for likely discharge to residential facility tomorrow, if fevers worsen or Clinically worsens may need 1 additional hospital day. DVT prophylaxis:Heparin Discussed with: Nursing, PT, family Anticipated discharge: 24-[address]: SNF A total of 35 minutes was spent on the care of this complex patient more than 50 % of the time was spent in counseling and care coordination.
[2017-12-07] MEDS: cefTRIAXone IN SWFI 1,000 MG/10 ML SYRINGE IVP SCH (21:23)
--- NOTE | 2017-12-08 00:36 | US ---
EXAMINATION TYPE: US venous doppler duplex LE DATE OF EXAM: 12/08/2017 12:23 AM COMPARISON: NONE CLINICAL HISTORY: swelling. Right leg swelling. Left leg limited in groin area due to leg bent over o n right side unable to move. Left EIV, CFV, and GSV not well visualized. SIDE PERFORMED: Bilateral TECHNIQUE: The lower extremity deep venous system is examined utilizing real time linear array sonog whit with graded compression, doppler sonography and color-flow sonography. VESSELS IMAGED: External Iliac Vein (EIV) Common Femoral Vein Deep Femoral Vein Greater Saphenous Vein * Femoral Vein Popliteal Vein Small Saphenous Vein * Proximal Calf Veins (* superficial vessels) Right Leg: Negative for DVT Left Leg: Vessels visualized negative for DVT. Limited EIV,CFV and GSV not well visualized. IMPRESSION: No evidence of deep venous thrombosis in both legs. Limited evaluation of the left leg.
[2017-12-08] MEDS: LACTATED RINGERS 1,000 ML IV SCH ×2 (04:37→15:25)
[2017-12-08 07:32] LABS: HGB 10.7 gm/dL (13.0-17.5); MCH 29.1 pg (25.0-35.0); MCHC 33.4 g/dL (31.0-37.0); MCV 87.2 fL (80.0-100.0); Mean Platelet Volume 7.2; Platelet Count 201 k/uL (150-450); RBC 3.67 m/uL (4.30-5.90); RDW 12.7 % (11.5-15.5); WBC 8.8 k/uL (3.8-10.6)
[2017-12-08 07:45] LABS: Anion Gap 6 mmol/L; Blood Urea Nitrogen 10 mg/dL (9-20); Calcium 7.8 mg/dL (8.4-10.2); Carbon Dioxide 27 mmol/L (22-30); Chloride 105 mmol/L (98-107); Glucose 117 mg/dL (74-99); Potassium 3.8 mmol/L (3.5-5.1); Sodium 138 mmol/L (137-145)
[2017-12-08] MEDS: amLODIPine 5 MG TAB PO SCH (08:15)
[2017-12-08] MEDS: LISINOPRIL 20 MG TAB PO SCH (08:16)
[2017-12-08] MEDS: SERTRALINE 100 MG TAB PO SCH (08:21)
[2017-12-08] MEDS: cefTRIAXone IN SWFI 1,000 MG/10 ML SYRINGE IVP SCH (08:22)
[2017-12-08] MEDS: carBAMazepine 200 MG TAB PO SCH ×3 (08:22→20:34)
[2017-12-08] MEDS: QUEtiapine 50 MG TAB PO SCH ×2 (08:22→20:34)
[2017-12-08] MEDS: HEPARIN SODIUM,PORCINE 5,000 UNIT/ML 1 ML VIAL SQ SCH ×2 (08:22→15:15)
[2017-12-08] MEDS ORDERED: AZITHROMYCIN 500 MG TAB PO SCH (09:00)
[2017-12-08] MEDS: LEVOFLOXACIN 750MG-D5W PMX 750 MG in DEXTROSE/WATER 1 150ML.BAG IVPB SCH (10:04)
--- NOTE | 2017-12-08 12:32 | P.PN ---
Subjective Progress Note Date: 12/08/17 Principal diagnosis: Hip fracture Patient has been having fevers as high as 100.7. Also having slight shortness of breath, no chest pain. He has been tachycardic as well. Objective - Vital Signs Vital signs: Vital Signs Temp 100.7 F H 12/08/17 07:05 Pulse 95 12/08/17 07:05 Resp 18 12/08/17 07:05 BP 104/57 12/08/17 07:05 Pulse Ox 96 12/08/17 07:05 Intake & Output 12/07/17 12/08/17 12/08/17 18:59 06:59 18:59 Intake Total 715 1300 Output Total 295 Balance 420 1300 Intake: IV 375 Lactated Ringers 1,000 ml 375 @ 75 mls/hr IV .[id number] [facility] Rx#:[id number] Intake, IV Titration 1300 Amount Azithromycin 500 mg In 1000 Sodium Chloride 0.9% 250 ml @ 125 mls/hr IVPB ONCE [facility] Rx#:[id number] Lactated Ringers 1,000 ml 300 @ 75 mls/hr IV .[id number] [facility] Rx#:[id number] Oral 340 Output: Urine 295 2-way Urethral 295 Other: Voiding Method Indwelling Catheter Urinal Indwelling Catheter - Exam Constitutional: No acute distress, conversant, pleasant Eyes:Anicteric sclerae, moist conjunctiva, no lid-lag, PERRLA, ENMT: Oropharynx clear, no erythema, exudates Neck: Supple, FROM, no masses, or JVD, No carotid bruits, No thyromegaly Lungs: Clear to auscultation, Clear to percussion, Normal respiratory effort, no accessory muscle use Cardiovascular: Tachycardic, regular in rate and rhythm, No murmurs, gallops, or rubs, No peripheral edema Abdominal: Soft, Nontender, no guarding, rebound or rigidity, Normoactive bowel sounds, No hepatomegaly, No splenomegaly, No palpable mass Skin: Maculopapular rash on the upper arms and the chest. Normal temperature, tone, texture, turgor, no induration, No subcutaneous nodules, No rash, lesions , No ulcers Extremities: No digital cyanosis, No clubbing, Pedal pulses intact and symmetrical, Radial pulses intact and symmetrical, No calf tenderness Psychiatric: Alert and oriented to person, place and time, appropriate affect, intact judgement Neuro: Muscles Strength 5/5 in all 4 extremities, Sensation to light touch grossly present throughout, Cranial nerves II-XII grossly intact, no focal sensory deficits - Labs CBC & Chem 7: 12/08/17 07:06 12/08/17 07:06 Labs: Abnormal Lab Results - Last 24 Hours (Table) 12/07/17 12/08/17 12/08/17 Range/Units 13:33 07:06 07:06 RBC 3.67 L (4.30-5.90) m/uL Hgb 10.7 L (13.0-17.5) gm/dL Hct 32.0 L (39.0-53.0) % Creatinine 0.64 L (0.66-1.25) mg/dL Glucose 117 H (74-99) mg/dL Calcium 7.8 L (8.4-10.2) mg/dL Urine Protein 1+ H (Negative) Urine Ketones 1+ H (Negative) Ur Leukocyte Esterase Small H (Negative) Urine WBC 9 H (0-5) /hpf Urine Bacteria Rare H (None) /hpf Urine Mucus Occasional H (None) /hpf Microbiology - Last 24 Hours (Table) 12/07/17 13:33 Urine Culture - Preliminary Urine,Voided 12/05/17 16:46 Blood Culture - Preliminary Blood No Growth after 48 hours Assessment and Plan Plan: Pneumonia, Left lower lobe -Aggressive pulmonary hygiene with incentive spirometer -Due to the rash will discontinue rocephin and zithromax, switch to Levaquin. -Repeat chest x-ray in 3-5 days Left hip fracture status post intertrochanteric nailing -DVT prophylaxis per orthopedic surgery -Pain control according to surgery Seizure disorder -Continue with Tegretol Hypertension -Blood pressures currently soft -Hold amlodipine and lisinopril today -Follow blood pressures DVT prophylaxis:Heparin Discussed with: Nursing, PT, family Anticipated discharge: 24-[address]: [facility] A total of 35 minutes was spent on the care of this complex patient more than 50 % of the time was spent in counseling and care coordination.
--- NOTE | 2017-12-08 17:20 | P.PN ---
Subjective Progress Note Date: 12/08/17 Principal diagnosis: Status post left hip hemiarthroplasty Patient seen today resting in his hospital bed, he appears comfortable. He does note some increasing pain in the left hip. Ambulated minimally. Denies any chest pain or shortness of breath. Objective - Vital Signs Vital signs: Vital Signs Temp 101 F H 12/08/17 15:00 Pulse 98 12/08/17 15:00 Resp 12 12/08/17 15:00 BP 126/69 12/08/17 15:00 Pulse Ox 99 12/08/17 15:00 Intake & Output 12/07/17 12/08/17 12/08/17 18:59 06:59 18:59 Intake Total 715 1300 540 Output Total 295 475 Balance 420 1300 65 Intake: IV 375 Lactated Ringers 1,000 ml 375 @ 75 mls/hr IV .[id number] [facility] Rx#:[id number] Intake, IV Titration 1300 Amount Azithromycin 500 mg In 1000 Sodium Chloride 0.9% 250 ml @ 125 mls/hr IVPB ONCE [facility] Rx#:[id number] Lactated Ringers 1,000 ml 300 @ 75 mls/hr IV .[id number] [facility] Rx#:[id number] Oral 340 540 Output: Urine 295 475 2-way Urethral 295 Uretheral (Higgins) 475 Other: Voiding Method Indwelling Catheter Urinal Indwelling Catheter - Exam Left lower extremity: Incision is clean, dry, and intact. The prineo tape is in good condition. There is minimal soft tissue swelling and ecchymosis surrounding the medial and lateral aspects of the incision. Calf is soft, no tenderness with palpation. Plantar flexion, dorsiflexion, EHL, FHL are intact. Sensory exam to light touch throughout the extremity is intact, dorsal pedis pulses 2+. - Labs CBC & Chem 7: 12/08/17 07:06 12/08/17 07:06 Labs: Abnormal Lab Results - Last 24 Hours (Table) 12/08/17 12/08/17 Range/Units 07:06 07:06 RBC 3.67 L (4.30-5.90) m/uL Hgb 10.7 L (13.0-17.5) gm/dL Hct 32.0 L (39.0-53.0) % Creatinine 0.64 L (0.66-1.25) mg/dL Glucose 117 H (74-99) mg/dL Calcium 7.8 L (8.4-10.2) mg/dL Microbiology - Last 24 Hours (Table) 12/07/17 13:33 Urine Culture - Preliminary Urine,Voided 12/05/17 16:46 Blood Culture - Preliminary Blood No Growth after 48 hours Assessment and Plan Plan: Assessment: Postoperative day #2 status post left hip hemiarthroplasty Plan: Pain control, continue current medication Weight-bear as tolerated with therapy GI and DVT prophylaxis, per medical recommendation Medical recommendations Encourage incentive spirometer Discharge planning: Hopeful discharge to rehab tomorrow Time with Patient: Less than 30
[2017-12-08] MEDS: KETOROLAC 30 MG/ML 1 ML VIAL IVP PRN (19:23)
[2017-12-08] MEDS: ACETAMINOPHEN TAB 325 MG TAB PO PRN (19:24)
[2017-12-09] MEDS: HEPARIN SODIUM,PORCINE 5,000 UNIT/ML 1 ML VIAL SQ SCH ×2 (00:42→09:55)
[2017-12-09] MEDS: KETOROLAC 30 MG/ML 1 ML VIAL IVP PRN (05:20)
[2017-12-09] MEDS: LACTATED RINGERS 1,000 ML IV SCH (05:58)
[2017-12-09 08:00] VITALS: BP 106/68; PULSE 82; RESP 14; TEMP 98.8
[2017-12-09] MEDS: SERTRALINE 100 MG TAB PO SCH (09:55)
[2017-12-09] MEDS: carBAMazepine 200 MG TAB PO SCH ×2 (09:55→16:51)
[2017-12-09] MEDS: QUEtiapine 50 MG TAB PO SCH (09:55)
[2017-12-09] MEDS: amLODIPine 5 MG TAB PO SCH (09:55)
[2017-12-09] MEDS: LISINOPRIL 20 MG TAB PO SCH (09:55)
[2017-12-09] MEDS: LEVOFLOXACIN 750MG-D5W PMX 750 MG in DEXTROSE/WATER 1 150ML.BAG IVPB SCH (11:24)
--- NOTE | 2017-12-09 13:54 | P.PN ---
Subjective Progress Note Date: 12/09/17 Principal diagnosis: Hip fracture Doing well, no new complaints. No overnight issues. No fevers or chills. No shortness of breath or chest pain. Objective - Vital Signs Vital signs: Vital Signs Temp 98.8 F 12/09/17 07:10 Pulse 82 12/09/17 07:10 Resp 14 12/09/17 07:10 BP 106/68 12/09/17 07:10 Pulse Ox 100 12/09/17 07:10 Intake & Output 12/08/17 12/09/17 12/09/17 18:59 06:59 18:59 Intake Total 840 262.5 Output Total 475 500 100 Balance 365 -237.5 -100 Intake: IV 262.5 Lactated Ringers 1,000 ml 262.5 @ 75 mls/hr IV .[id number] [facility] Rx#:[id number] Oral 840 Output: Urine 475 500 100 Uretheral (Higgins) 475 Other: Voiding Method Indwelling Catheter Indwelling Catheter Indwelling Catheter # Bowel Movements 1 - Exam Constitutional: No acute distress, conversant, pleasant Eyes:Anicteric sclerae, moist conjunctiva, no lid-lag, PERRLA, ENMT: Oropharynx clear, no erythema, exudates Neck: Supple, FROM, no masses, or JVD, No carotid bruits, No thyromegaly Lungs: Clear to auscultation, Clear to percussion, Normal respiratory effort, no accessory muscle use Cardiovascular: Tachycardic, regular in rate and rhythm, No murmurs, gallops, or rubs, No peripheral edema Abdominal: Soft, Nontender, no guarding, rebound or rigidity, Normoactive bowel sounds, No hepatomegaly, No splenomegaly, No palpable mass Skin: Maculopapular rash on the upper arms and the chest. Normal temperature, tone, texture, turgor, no induration, No subcutaneous nodules, No rash, lesions , No ulcers Extremities: Left hip surgical dressings in place, No digital cyanosis, No clubbing, Pedal pulses intact and symmetrical, Radial pulses intact and symmetrical, No calf tenderness Psychiatric: Alert and oriented to person, place and time, appropriate affect, intact judgement Neuro: Muscles Strength 5/5 in all 4 extremities, Sensation to light touch grossly present throughout, Cranial nerves II-XII grossly intact, no focal sensory deficits - Labs CBC & Chem 7: 12/08/17 07:06 12/08/17 07:06 Labs: Microbiology - Last 24 Hours (Table) 12/07/17 13:33 Urine Culture - Final Urine,Voided 12/05/17 16:46 Blood Culture - Preliminary Blood No Growth after 72 hours Assessment and Plan Plan: Pneumonia, Left lower lobe -Aggressive pulmonary hygiene with incentive spirometer -Continue Levaquin. Left hip fracture status post intertrochanteric nailing -DVT prophylaxis per orthopedic surgery -Pain control according to surgery Seizure disorder -Continue with Tegretol Hypertension -Blood pressures currently soft -Hold amlodipine and lisinopril today -Follow blood pressures DVT prophylaxis:Heparin Discussed with: Nursing, PT, family Anticipated discharge: [address]: [facility] A total of 35 minutes was spent on the care of this complex patient more than 50 % of the time was spent in counseling and care coordination.
--- NOTE | 2017-12-09 14:06 | P.PN ---
Subjective Progress Note Date: 12/09/17 Principal diagnosis: Status post left hip hemiarthroplasty Patient seen today resting in his hospital bed, he appears comfortable. He does note some increasing pain in the left hip. Ambulated minimally. Denies any chest pain or shortness of breath. Objective - Vital Signs Vital signs: Vital Signs Temp 98.8 F 12/09/17 07:10 Pulse 82 12/09/17 07:10 Resp 14 12/09/17 07:10 BP 106/68 12/09/17 07:10 Pulse Ox 100 12/09/17 07:10 Intake & Output 12/08/17 12/09/17 12/09/17 18:59 06:59 18:59 Intake Total 840 262.5 Output Total 475 500 100 Balance 365 -237.5 -100 Intake: IV 262.5 Lactated Ringers 1,000 ml 262.5 @ 75 mls/hr IV .[id number] [facility] Rx#:[id number] Oral 840 Output: Urine 475 500 100 Uretheral (Higgins) 475 Other: Voiding Method Indwelling Catheter Indwelling Catheter Indwelling Catheter # Bowel Movements 1 - Exam Left lower extremity: Incision is clean, dry, and intact. The prineo tape is in good condition. There is minimal soft tissue swelling and ecchymosis surrounding the medial and lateral aspects of the incision. Calf is soft, no tenderness with palpation. Plantar flexion, dorsiflexion, EHL, FHL are intact. Sensory exam to light touch throughout the extremity is intact, dorsal pedis pulses 2+. - Labs CBC & Chem 7: 12/08/17 07:06 12/08/17 07:06 Labs: Microbiology - Last 24 Hours (Table) 12/07/17 13:33 Urine Culture - Final Urine,Voided 12/05/17 16:46 Blood Culture - Preliminary Blood No Growth after 72 hours Assessment and Plan Plan: Assessment: Postoperative day #3 status post left hip hemiarthroplasty Plan: Pain control, continue current medication Weight-bear as tolerated with therapy GI and DVT prophylaxis, we'll discharge on heparin 5000 units every 12 Medical recommendations Encourage incentive spirometer Discharge planning: Plan for discharge today Time with Patient: Less than 30
--- NOTE | 2017-12-09 14:10 | P.DS ---
Providers Date of admission: 12/05/17 18:31 Expected date of discharge: 12/09/17 Attending physician: Lobo Renee Consults: 12/05/17 18:32 Consult Physician Routine Consulting Provider: Aj Sanchez Consult Reason/Comments: medicine consult for IM Do you want consulting provider notified?: Yes Primary care physician: [facility] Course: Date of admission: 12/05/2017 Date of discharge: 12/09/2017 Admission diagnosis: Left femoral neck fracture Discharge diagnosis: Status post left hip hemiarthroplasty Attending physician: Dr. Renee Surgical procedures: Left hip hemiarthroplasty Brief history: Patient is a 47-year-old male who presented to [facility] after sustaining a fall out of his car. He was initially transferred [facility], he was transferred here after imaging studies revealed a left hip fracture. Dr. Renee evaluated the patient, surgery was scheduled for a 2018. Hospital course: Details of patient's surgery can be found in operative report. Patient tolerated the procedure well and was subsequently transported to orthopedic floor. Patient's orthopeidc and medical care was provided daily. Patient had daily laboratory tests performed for evaluation of overall blood counts. Patient had daily physical therapy to include strengthening range of motion as well as education with walker ambulation. Patient was treated with heparin for their postoperative DVT prophylaxis during their inpatient stay. Patient was noted to have a relatively uneventful postoperative course. Patient reported satisfactory pain control with oral pain medications by postoperative day 0. Patient showed satisfactory progress with physical therapy. Patient moved steadily through the program and had no difficulty meeting the goals by postoperative day 3. Given patient's otherwise satisfactory course and having met physical therapy goals, plan is to discharge patient rehab on postoperative day 3. Discharge condition/disposition: Patient will be discharged rehab in stable condition. Discharge medications: Instructions are given on resumption of patient's normal daily medications per primary care recommendation, in addition patient will be prescribed Tuthill 7.5 mg/325 mg, heparin 5000 units. Discharge instructions: 1. Wound care and infection precautions, keep incision dry and covered while showering, no lotions, creams, moisturizers. No soaking, tubs, pools, hottubs. Do not scrub over the incision. 2. Weight-bear as tolerated with walker / cane until follow-up. 3. Ice and elevate when necessary. Do not exceed 20 minutes per hour with ice pack. 4. Utilize compression sleeve until seen at first follow up appointment. 5. Visiting nursing care. 6. Home physical therapy. 7. Pain meds and anticoagulants per prescription. 8. Pain medication has potential to cause constipation. Increase oral fluid and fiber intake. Contact primary care provider if you have not had a bowel movement within 48 hours after discharge 9. No anti-inflammatory medication until discussed at first post operative visit, this including Motrin, Aleve, Mobic, Diclofenac. 10. Follow up in office at 2 weeks postop with Parrish Umanzor PA-C 11. Follow up with your primary care doctor 7-10 days after discharge. 12. Contact [facility] with any questions, . Procedures: Left hip hemiarthroplasty Patient Condition at Discharge: Fair Plan - Discharge Summary New Discharge Prescriptions: New Heparin Sodium,Porcine [Heparin Sodium] 5,000 unit SQ Q12HR #60 vial HYDROcodone/APAP 7.5-325MG [Tuthill 7.5] 1 - 2 each PO Q6HR PRN #56 tab PRN Reason: Pain No Action amLODIPine BESYLATE/BENAZEPRIL [Lotrel 5-20 mg Capsule] 1 cap PO DAILY Sertraline [Zoloft] 200 mg PO DAILY QUEtiapine [SEROquel] 50 mg PO BID Doxycycline [Vibramycin] 50 mg PO DAILY carBAMazepine [TEGretol] 300 mg PO BID@1500,2200 carBAMazepine [TEGretol] 400 mg PO QAM Discharge Medication List Doxycycline [Vibramycin] 50 mg PO DAILY 12/05/17 [History] QUEtiapine [SEROquel] 50 mg PO BID 12/05/17 [History] Sertraline [Zoloft] 200 mg PO DAILY 12/05/17 [History] amLODIPine BESYLATE/BENAZEPRIL [Lotrel 5-20 mg Capsule] 1 cap PO DAILY 12/05/17 [History] carBAMazepine [TEGretol] 300 mg PO BID@1500,2200 12/05/17 [History] carBAMazepine [TEGretol] 400 mg PO QAM 12/05/17 [History] HYDROcodone/APAP 7.5-325MG [Tuthill 7.5] 1 - 2 each PO Q6HR PRN #56 tab 12/09/17 [ Rx] Heparin Sodium,Porcine [Heparin Sodium] 5,000 unit SQ Q12HR #60 vial 12/09/17 [ Rx] Follow up Appointment(s)/Referral(s): Fidel Umanzor PAC [PHYSICIAN PLANETARIUM TECHNICIAN] - 12/25/17 2:30 pm Edson Rangel MD [Primary Care Provider] - 1-2 days Activity/Diet/Wound Care/Special Instructions: Orthopedic Discharge Instructions: 1. Wound care and infection precautions, keep incision dry and covered while showering, no lotions, creams, moisturizers. No soaking, pools, hot tubs. Do not scrub over incision. 2. Weight-bear as tolerated with walker / cane until follow-up. 3. Ice and elevate when necessary. Do not exceed 20 minutes per hour with ice pack. 4. Utilize compression sleeve until seen at first follow up appointment. 5. Pain meds and anticoagulants per prescription. 6. Pain medication has potential to cause constipation. Increase oral fluid and fiber intake. Contact primary care provider if you have not had a bowel movement within 48 hours after discharge. 7. No anti-inflammatory medication until discussed at first post operative visit, this including Motrin, Aleve, Mobic, Diclofenac 8. Follow up in office at 2 weeks postop with Parrish Umanzor PA-C 9. Follow up with your primary care doctor 7-10 days after discharge. 10. Contact [facility] with any questions, . Discharge Disposition: TRANSFER TO SNF/ECF
[2017-12-09] MEDS ORDERED: HYDROmorphone 2 MG TAB PO PRN (15:53)
[2017-12-09] MEDS ORDERED: HYDROmorphone 4 MG TABLET PO PRN (15:54)
[2017-12-09] MEDS ORDERED: diphenhydrAMINE 25 MG CAP PO PRN (16:32)
[2017-12-09] MEDS: ACETAMINOPHEN TAB 325 MG TAB PO PRN (16:56)
[2017-12-10] MEDS ORDERED: LEVOFLOXACIN 750 MG TAB PO SCH (12:00)
== END 2017-12-09 18:36 | DRG 469 ==
LOC: EC 16:11 → 3SUR 18:31
PROVIDERS: ADMIT Orthopaedic Surgery; ATTEND Orthopaedic Surgery
PROC: 0SRS01A Replacement of Left Hip Joint, Femoral Surface with Metal Synthetic Substitute, Uncemented, Open Approach (ICD-10-PCS; principal; 2017-12-06 15:00)
DX: S72.012A Unspecified intracapsular fracture of left femur, initial encounter for closed fracture (principal); J18.9 Pneumonia, unspecified organism; G40.909 Epilepsy, unspecified, not intractable, without status epilepticus; M24.522 Contracture, left elbow; Q65.89 Other specified congenital deformities of hip; I10 Essential (primary) hypertension; Z79.899 Other long term (current) drug therapy; Z87.820 Personal history of traumatic brain injury; Z88.0 Allergy status to penicillin; Z91.048 Other nonmedicinal substance allergy status; W01.0XXA Fall on same level from slipping, tripping and stumbling without subsequent striking against object, initial encounter
CPT/HCPCS: 36415; 71045; 71046; 73501; 80048; 81001; 81003; 85025; 85027; 85610; 87040; 87086; 88305; 88311; 93970; 99285

== ENCOUNTER → 2020-04-03 | Outpatient (CLI) | payer OTHER | END | disposition home or self-care (01) | LOC: LABWHC1 13:18 | PROVIDERS: ATTEND Nurse Practitioner Adult Health | DX: R43.9 Unspecified disturbances of smell and taste (principal); R09.81 Nasal congestion | CPT/HCPCS: U0003; C9803 ==

== ENCOUNTER 2020-07-13 20:41 | Emergency (ER) | payer MEDICARE ==
[2020-07-13] MEDS ORDERED: ACETAMINOPHEN TAB 325 MG TAB PO STA (21:16)
[2020-07-13] MEDS ORDERED: SODIUM CHLORIDE 0.9% 1,000 ML IV STA (21:18)
--- NOTE | 2020-07-13 21:20 | ED ---
URI HPI - General Chief Complaint: Upper Respiratory Infection Stated Complaint: Fever Time Seen by Provider: 07/13/20 21:09 Source: patient Mode of arrival: ambulatory Limitations: no limitations - History of Present Illness Initial Comments: 49-year-old male patient with past medical history significant for traumatic brain injury and left-sided paralysis presents to the emergency department today with a sister for evaluation of fever that was 104F at home. States that he also started to have a cough today. His father has been diagnosed with COVID- 19. Denies any nausea or vomiting. Denies diarrhea. Denies any rash. Denies any shortness of breath. Patient denies any recent chest pain, abdominal pain, back pain, numbness, tingling, dizziness, weakness, hematuria, dysuria, urinary urgency, urinary frequency, headache, visual changes, or any other complaints. - Related Data Home Medications Medication Instructions Recorded Confirmed Sertraline [Zoloft] 200 mg PO DAILY@0800 12/05/17 07/13/20 amLODIPine BESYLATE/BENAZEPRIL 1 cap PO DAILY@0800 12/05/17 07/13/20 [Lotrel 5-20 MG] carBAMazepine [TEGretol] 400 mg PO TID@0800,1700,199912/05/17 07/13/20 Doxycycline Monohydrate 50 mg PO DAILY@0800 07/13/20 07/13/20 Nystatin 100,000 Unit/gm Powd 1 applic TOPICAL BID 07/13/20 07/13/20 [Mycostatin Powder] OLANZapine [ZyPREXA] 5 mg PO TID@0800,1400,199907/13/20 07/13/20 QUEtiapine FUMARATE 300 mg PO HS@199907/13/20 07/13/20 hydrOXYzine pamoate [Vistaril] 50 mg PO HS@199907/13/20 07/13/20 hydrOXYzine pamoate [hydrOXYzine 50 mg PO DAILY PRN 07/13/20 07/13/20 PAMOATE] Allergies Allergy/AdvReac Type Severity Reaction Status Date / Time adhesive tape Allergy Unknown Rash/Hives Verified 07/13/20 22:30 Macrolide Antibiotics Allergy Rash/Hives Verified 07/13/20 22:30 Penicillins Allergy Rash/Hives Verified 07/13/20 22:30 ketolides Allergy Rash/Hives Uncoded 07/13/20 20:48 Review of Systems ROS Statement: Those systems with pertinent positive or pertinent negative responses have been documented in the HPI. ROS Other: All systems not noted in ROS Statement are negative. 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 History of Any Multi-Drug Resistant Organisms: None Reported Past Surgical History: No Surgical Hx Reported Past Anesthesia/Blood Transfusion Reactions: No Reported Reaction Past Psychological History: No Psychological Hx Reported Smoking Status: Never smoker Past Alcohol Use History: None Reported Past Drug Use History: None Reported - Past Family History Mother Family Medical History: No Reported History Father Family Medical History: No Reported History General Exam Limitations: no limitations General appearance: alert, in no apparent distress, other (This is a well- developed, well-nourished adult male patient in no acute distress. Vital signs upon presentation are temperature 100.8F, pulse 121, respirations 20, blood pressure 107/63, pulse ox 94% on room air.) Eye exam: Present: normal appearance, PERRL, EOMI. Absent: scleral icterus, conjunctival injection, periorbital swelling ENT exam: Present: normal exam, normal oropharynx, mucous membranes moist Respiratory exam: Present: normal lung sounds bilaterally. Absent: respiratory distress, wheezes, rales, rhonchi, stridor Cardiovascular Exam: Present: normal rhythm, tachycardia, normal heart sounds. Absent: systolic murmur, diastolic murmur, rubs, gallop, clicks GI/Abdominal exam: Present: soft, normal bowel sounds. Absent: distended, tenderness, guarding, rebound, rigid Neurological exam: Present: alert, oriented X3, CN II-XII intact Psychiatric exam: Present: normal affect, normal mood Skin exam: Present: warm, dry, intact, normal color. Absent: rash Course Vital Signs 07/13/20 07/13/20 20:43 22:32 Temperature 100.8 F H 98.7 F Pulse Rate 121 H 92 Respiratory 20 18 Rate Blood Pressure 107/63 109/73 O2 Sat by Pulse 94 L 98 Oximetry Medical Decision Making - Medical Decision Making 49-year-old male patient presents to the emergency department today for evaluation of high fever and cough. Patient did test positive for COVID-19. He was given antipyretics and IV fluids. Lungs are clear to auscultation. Vital signs did improve after medications. He'll be discharged follow-up with his primary care physician for recheck in 1-2 days. He does have albuterol treatments at home is instructed to do these. Return parameters were discussed in detail. He verbalizes understanding and agrees with this plan. Case discussed with my attending Dr. Arreola. - Lab Data Lab Results 07/13/20 Range/Units 21:25 Coronavirus (PCR) Detected A (Not Detectd) - Radiology Data Radiology results: report reviewed, image reviewed One view x-ray of the chest is obtained. Report is reviewed in its entirety. Impression by Dr. Zapata shows no acute process. Disposition Clinical Impression: COVID-19 Disposition: HOME SELF-CARE Condition: Good Instructions (If sedation given, give patient instructions): Coronavirus Disease 2019 (COVID-19) Additional Instructions: Alternate Tylenol and Motrin for fever control. Increase fluids. Rest. 2 home albuterol treatment stated with breathing. Follow-up with the primary care physician for recheck in 1-2 days. Return to the emergency department for any new, worsening, or concerning symptoms. Is patient prescribed a controlled substance at d/c from ED?: No Referrals: Melissa Fleming NPC [Primary Care Provider] - 1-2 days Time of Disposition: 22:40
--- NOTE | 2020-07-13 21:44 | XR ---
EXAMINATION TYPE: XR chest 1V DATE OF EXAM: 07/13/2020 COMPARISON: 12/07/2017. HISTORY: Cough and fever. TECHNIQUE: Single frontal view of the chest is obtained. FINDINGS: There is no focal air space opacity, pleural effusion, or pneumothorax seen. The cardiac silhouette size is within normal limits. The osseous structures are intact. IMPRESSION: No acute process.
[2020-07-13 22:33] VITALS: BP 109/73; PULSE 92; RESP 18; TEMP 98.7
== END 2020-07-13 22:55 | disposition home or self-care (01) ==
LOC: EC 20:41
DX: U07.1 COVID-19 (principal); I10 Essential (primary) hypertension
CPT/HCPCS: 71045; 87635; 96360; 99283

== ENCOUNTER 2020-07-24 10:22 | Emergency (ER) | payer MEDICARE ==
[2020-07-24] MEDS ORDERED: ACETAMINOPHEN TAB 500 MG TAB PO STA (11:12)
--- NOTE | 2020-07-24 11:16 | ED ---
General Adult HPI - General Chief complaint: Shortness of Breath Stated complaint: positive covid Time Seen by Provider: 07/24/20 10:27 Source: EMS Mode of arrival: EMS Limitations: no limitations - History of Present Illness Initial comments: Dictation was produced using [employer] dictation software. please excuse any grammatical, word or spelling errors. This patient was cared for during a federal and state declared state of emergency secondary to Covid 19 Chief Complaint: 49-year-old male with past medical history of seizures, hype rtension, hip dysplasia this emergency prior for covid 19 History of Present Illness: 49-year-old male multiple comorbidities presents to the emergency department for Covid 19. Patient is a poor historian. He has past medical history of chronic debility, hypertension and diabetes. Patient was brought here by EMS. He lives in a [place] were a lot of individuals have Covid 19. Chart review shows that patient was tested positive on July 13 which was 11 days ago. He states that he feels well. Patient denies any shortness of breath. The ROS documented in this emergency department record has been reviewed and confirmed by me. Those systems with pertinent positive or negative responses have been documented in the HPI. All other systems are other negative and/or noncontributory. PHYSICAL EXAM: General Impression: Alert and oriented x3, not in acute distress HEENT: Normocephalic atraumatic, extra-ocular movements intact, pupils equal and reactive to light bilaterally, mucous membranes moist. Cardiovascular: Heart regular rate and rhythm Chest: Able to complete full sentences, no retractions, no tachypnea Abdomen: abdomen soft, non-tender, non-distended, no organomegaly Musculoskeletal: Pulses present and equal in all extremities, no peripheral edema Neurological: CN II-XII grossly intact, no focal motor or sensory deficits noted Skin: Intact with no visualized rashes Psych: Normal affect and mood ED course: 49 Year-old Covid 19-positive male presents emergency department for evaluation Covid 19. Vital signs upon arrival shows tachycardia 11.3, worse vital signs within acceptable limits. Patient 95% on 2 L nasal cannula. Nasal cannula was removed. Patient oxygen levels are 91% at the lowest. He is in no acute distress at bedside. Some confusion as to a safe disposition both of his caretakers are hospitalized with Covid pneumonia and are unavailable. Furthermore, patient's mother lives 4 hours away and siblings are unable to care for patient.. vegetable ii farmworker was contacted. We did contact patient's guardian who will arrange for vp product to be with patient that we'll discharge. - Related Data Home Medications Medication Instructions Recorded Confirmed Sertraline [Zoloft] 200 mg PO DAILY@0800 12/05/17 07/24/20 amLODIPine BESYLATE/BENAZEPRIL 1 cap PO DAILY@0800 12/05/17 07/24/20 [Lotrel 5-20 MG] carBAMazepine [TEGretol] 400 mg PO TID@0800,1700,199912/05/17 07/24/20 Doxycycline Monohydrate 50 mg PO DAILY@0800 07/13/20 07/24/20 OLANZapine [ZyPREXA] 5 mg PO TID@0800,1400,199907/13/20 07/24/20 QUEtiapine FUMARATE 300 mg PO HS@199907/13/20 07/24/20 hydrOXYzine pamoate [Vistaril] 50 mg PO HS@199907/13/20 07/24/20 hydrOXYzine pamoate [hydrOXYzine 50 mg PO DAILY PRN 07/13/20 07/13/20 PAMOATE] Allergies Allergy/AdvReac Type Severity Reaction Status Date / Time adhesive tape Allergy Unknown Rash/Hives Verified 07/24/20 11:01 Macrolide Antibiotics Allergy Rash/Hives Verified 07/24/20 11:01 Penicillins Allergy Rash/Hives Verified 07/24/20 11:01 ketolides Allergy Rash/Hives Uncoded 07/24/20 11:01 Review of Systems ROS Statement: Those systems with pertinent positive or pertinent negative responses have been documented in the HPI. ROS Other: All systems not noted in ROS Statement are negative. Past Medical History Past Medical History: Hypertension, Seizure Disorder Additional Past Medical History / Comment(s): hip dysplasia, TBI, hx trach, narrow airway due to previous [facility] ventilation History of Any Multi-Drug Resistant Organisms: None Reported Past Surgical History: No Surgical Hx Reported Past Anesthesia/Blood Transfusion Reactions: No Reported Reaction Past Psychological History: No Psychological Hx Reported Smoking Status: Never smoker Past Alcohol Use History: None Reported Past Drug Use History: None Reported - Past Family History Mother Family Medical History: No Reported History Father Family Medical History: No Reported History General Exam Limitations: no limitations Course Vital Signs 07/24/20 07/24/20 10:46 12:32 Temperature 101.3 F H Pulse Rate 82 78 Respiratory 24 19 Rate Blood Pressure 108/61 110/69 O2 Sat by Pulse 95 93 L Oximetry Disposition Clinical Impression: COVID-19 Disposition: HOME SELF-CARE Condition: Fair Instructions (If sedation given, give patient instructions): Coronavirus Disease 2019 (COVID-19) Additional Instructions: Today you were evaluated for symptoms consistent with upper respiratory infection. Today you were evaluated for Covid 19. Your are stable for discharge, however it is instructed to to seek immediate medical attention especially if you develop worsening symptoms especially respiratory distress. If possible, try to obtain a pulse oximeter and monitor your oxygen at home. In the meantime please remain in quarantine for 14 days. For any other questions please contact [facility] for here in emergency department or [facility] at [phone] Is patient prescribed a controlled substance at d/c from ED?: No Referrals: Melissa Fleming NPC [Primary Care Provider] - 1-2 days Time of Disposition: 13:19
--- NOTE | 2020-07-24 11:38 | XR ---
EXAMINATION TYPE: XR chest 1V portable DATE OF EXAM: 07/24/2020 COMPARISON: 07/13/2020 HISTORY: Shortness of breath TECHNIQUE: Single frontal view of the chest is obtained. FINDINGS: Patchy perihilar and basilar infiltrates suspicious for pneumonia. The cardiac silhouette size is within normal limits. The osseous structures are intact. IMPRESSION: 1. Patchy perihilar and basilar infiltrates suspicious for pneumonia.
[2020-07-24 14:00] VITALS: BP 112/69; PULSE 75; RESP 18; TEMP 99.7
== END 2020-07-24 16:26 | disposition home or self-care (01) ==
LOC: EC 10:22
DX: U07.1 COVID-19 (principal); I10 Essential (primary) hypertension; G40.909 Epilepsy, unspecified, not intractable, without status epilepticus; E11.9 Type 2 diabetes mellitus without complications; Z79.899 Other long term (current) drug therapy; Z88.0 Allergy status to penicillin; Z88.1 Allergy status to other antibiotic agents; Z91.048 Other nonmedicinal substance allergy status
CPT/HCPCS: 71045; 99284

== ENCOUNTER 2021-05-26 11:08 | Emergency (ER) | payer MEDICARE ==
[2021-05-26] MEDS ORDERED: ACETAMINOPHEN TAB 325 MG TAB PO STA (11:41)
--- NOTE | 2021-05-26 11:51 | ED ---
General Adult HPI - General Chief complaint: Upper Respiratory Infection Stated complaint: SARAI,cough Time Seen by Provider: 05/26/21 11:40 Source: patient, family, RN notes reviewed, old records reviewed Mode of arrival: wheelchair Limitations: physical limitation - History of Present Illness Initial comments: 50-year-old male in no acute distress, presents to the emergency room with family member complaining of cough congestion and wheezing today. Patient was exposed to coronavirus by family member. He denies any pain or fevers. He is febrile here in the emergency room at 100.4. Oxygen is 97% on room air. 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 He did have coronavirus in July 2020. He has not been vaccinated. -: days(s) (1) Severity scale (1-10): 0 Associated Symptoms: cough, fever/chills, other (congestion) - Related Data Home Medications Medication Instructions Recorded Confirmed Sertraline [Zoloft] 200 mg PO DAILY@0800 12/05/17 05/26/21 amLODIPine BESYLATE/BENAZEPRIL 1 cap PO DAILY@0800 12/05/17 05/26/21 [Lotrel 5-20 MG] carBAMazepine [TEGretol] 400 mg PO TID@0800,1700,199912/05/17 05/26/21 Doxycycline Monohydrate 50 mg PO DAILY@0800 07/13/20 05/26/21 OLANZapine [ZyPREXA] 5 mg PO TID@0800,1400,199907/13/20 05/26/21 QUEtiapine FUMARATE 300 mg PO HS@199907/13/20 05/26/21 hydrOXYzine pamoate [Vistaril] 50 mg PO HS@199907/13/20 05/26/21 Previous Rx's Medication Instructions Recorded Albuterol Inhaler [Ventolin Hfa 2 puff INHALATION RT-QID PRN #8 gm 05/26/21 Inhaler] Allergies Allergy/AdvReac Type Severity Reaction Status Date / Time adhesive tape Allergy Unknown Rash/Hives Verified 05/26/21 13:25 Macrolide Antibiotics Allergy Rash/Hives Verified 05/26/21 13:25 Penicillins Allergy Rash/Hives Verified 05/26/21 13:25 ketolides Allergy Rash/Hives Uncoded 05/26/21 13:25 Review of Systems ROS Statement: Those systems with pertinent positive or pertinent negative responses have been documented in the HPI. ROS Other: All systems not noted in ROS Statement are negative. 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 History of Any Multi-Drug Resistant Organisms: None Reported Past Surgical History: No Surgical Hx Reported Past Anesthesia/Blood Transfusion Reactions: No Reported Reaction Past Psychological History: No Psychological Hx Reported Smoking Status: Never smoker Past Alcohol Use History: None Reported Past Drug Use History: None Reported - Past Family History Mother Family Medical History: No Reported History Father Family Medical History: No Reported History General Exam Limitations: physical limitation (wheelchair bound) General appearance: alert, in no apparent distress Head exam: Present: atraumatic, normocephalic, normal inspection Eye exam: Present: normal appearance ENT exam: Present: normal exam, normal oropharynx, mucous membranes moist Neck exam: Present: normal inspection. Absent: tenderness, meningismus, lymphadenopathy Respiratory exam: Present: wheezes (Inspiratory and expiratory). Absent: rhonchi, stridor, chest wall tenderness, accessory muscle use Cardiovascular Exam: Present: tachycardia GI/Abdominal exam: Present: soft Back exam: Present: normal inspection. Absent: tenderness, rash noted Neurological exam: Present: alert, oriented X3, other (Wheelchair bound, braces bilateral lower extremities) Psychiatric exam: Present: normal affect, normal mood Skin exam: Present: warm, dry. Absent: cyanosis, diaphoretic Course Vital Signs 05/26/21 05/26/21 05/26/21 11:16 12:21 12:22 Temperature 100.4 F H 101.0 F H Pulse Rate 125 H 116 H Respiratory 20 25 H 25 H Rate Blood Pressure 135/75 O2 Sat by Pulse 97 95 Oximetry 05/26/21 05/26/21 14:00 15:00 Temperature Pulse Rate 101 H Respiratory 18 Rate Blood Pressure 131/75 O2 Sat by Pulse 99 Oximetry Medical Decision Making - Medical Decision Making 50-year-old male in no acute distress, presents with family member complaining of cough congestion and wheezing today. Patient was exposed to coronavirus by family member. Oxygen saturation is 97% on room air. He did have coronavirus in July 2020 and has not been vaccinated. He did test positive for coronavirus today. Influenza swabs are negative. Chest x-ray is negative for any acute cardiopulmonary process. Due to patient's hypertension and not being vaccinated, he did qualify for monoclonal antibodies and was agreeable to this infusion. He tolerated the infusion without any difficulties. He was given albuterol inhaler in the emergency room along with Tylenol and Motrin for his fevers. He'll be discharged home with a prescription for albuterol and directed to follow up with his primary care doctor. I did encourage patient to return to the emergency room if any new or concerning symptoms. My attending is Dr Ivy. - Lab Data Lab Results 05/26/21 Range/Units 12:18 Influenza Type A (PCR) Not Detected (Not Detectd) Influenza Type B (PCR) Not Detected (Not Detectd) RSV (PCR) Not Detected (Not Detectd) SARS-CoV-2 (PCR) Detected A (Not Detectd) Disposition Clinical Impression: COVID-19 Disposition: HOME SELF-CARE Condition: Good Instructions (If sedation given, give patient instructions): Coronavirus Disease 2019 (COVID-19) Additional Instructions: Self quarantine for 10 days from symptom onset and 24 hours without fever. Use the albuterol inhaler 2 puffs every 4-6 hours as needed for difficulty breathing or cough. Tylenol and/or Motrin for fevers or body aches. Increase your fluid intake. Take vitamin C, vitamin D and zinc to improve immune health. Prescriptions: Albuterol Inhaler [Ventolin Hfa Inhaler] 2 puff INHALATION RT-QID PRN #8 gm PRN Reason: Dyspnea Is patient prescribed a controlled substance at d/c from ED?: No Referrals: Primitivo Singh MD [Primary Care Provider] - 1-2 days Time of Disposition: 15:08
--- NOTE | 2021-05-26 12:44 | XR ---
EXAMINATION TYPE: XR chest 2V DATE OF EXAM: 05/26/2021 COMPARISON: Chest x-ray July 24, 2020 HISTORY: Cough and fever. TECHNIQUE: Frontal and lateral views of the chest are obtained. FINDINGS: There is no suspicious focal air space opacity, pleural effusion, or pneumothorax seen cur rently. The cardiac silhouette size remains within normal limits. Advanced degenerative change left glenohumeral joint is redemonstrated. IMPRESSION: No acute pulmonary process.
[2021-05-26 13:05] LABS: Influenza A Not Detected (Not Detectd); Influenza B Not Detected (Not Detectd)
[2021-05-26] MEDS ORDERED: ALBUTEROL HFA INHALER INHALATION STA (13:19)
[2021-05-26] MEDS ORDERED: SOTROVIMAB (EUA) 500 MG in SODIUM CHLORIDE 0.9% 100 ML IVPB ONE (14:00)
[2021-05-26] MEDS ORDERED: SODIUM CHLORIDE 0.9% 50 ML IVPB ONE (14:30)
[2021-05-26] MEDS ORDERED: IBUPROFEN 800 MG TAB PO STA (15:08)
[2021-05-26 15:10] VITALS: RESP 18
[2021-05-26 16:51] VITALS: BP 127/88; PULSE 106; TEMP 99
== END 2021-05-26 16:51 | disposition home or self-care (01) ==
LOC: EC 11:08
DX: U07.1 COVID-19 (principal); Z88.0 Allergy status to penicillin; I10 Essential (primary) hypertension
CPT/HCPCS: 99283; 94640; 87636; 71046; Q0247

== ENCOUNTER 2022-07-29 18:07 | Emergency (ER) | payer MEDICARE ==
[2022-07-29 18:17] VITALS: RESP 18; TEMP 99
[2022-07-29] MEDS ORDERED: levETIRAcetam IV 1,000 MG in SALINE 1 100ML.BAG IVPB STA (18:34)
--- NOTE | 2022-07-29 18:40 | ED ---
General Adult HPI - General Chief complaint: Seizure Stated complaint: Seizure Time Seen by Provider: 07/29/22 18:22 Source: patient, RN notes reviewed Mode of arrival: EMS Limitations: no limitations - History of Present Illness Initial comments: Patient is a pleasant 51-year-old male presenting to the emergency Department with reported seizure. Patient states he feels it was just a small one. Patient admits he does have history of seizures however states he has not had one along time. Patient denies any injury. Patient states he feels fine at this time and has no complaints. 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 - Related Data Home Medications Medication Instructions Recorded Confirmed Sertraline [Zoloft] 200 mg PO DAILY@0800 12/05/17 05/26/21 amLODIPine BESYLATE/BENAZEPRIL 1 cap PO DAILY@0800 12/05/17 05/26/21 [Lotrel 5-20 MG] carBAMazepine [TEGretol] 400 mg PO TID@0800,1700,199912/05/17 05/26/21 Doxycycline Monohydrate 50 mg PO DAILY@0800 07/13/20 05/26/21 OLANZapine [ZyPREXA] 5 mg PO TID@0800,1400,199907/13/20 05/26/21 QUEtiapine FUMARATE 300 mg PO HS@199907/13/20 05/26/21 hydrOXYzine pamoate [Vistaril] 50 mg PO HS@199907/13/20 05/26/21 Previous Rx's Medication Instructions Recorded Albuterol Inhaler [Ventolin Hfa 2 puff INHALATION RT-QID PRN #8 gm 05/26/21 Inhaler] Allergies Allergy/AdvReac Type Severity Reaction Status Date / Time adhesive tape Allergy Unknown Rash/Hives Verified 07/29/22 18:17 Macrolide Antibiotics Allergy Rash/Hives Verified 07/29/22 18:17 Penicillins Allergy Rash/Hives Verified 07/29/22 18:17 ketolides Allergy Rash/Hives Uncoded 05/26/21 13:25 Review of Systems ROS Statement: Those systems with pertinent positive or pertinent negative responses have been documented in the HPI. ROS Other: All systems not noted in ROS Statement are negative. 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 History of Any Multi-Drug Resistant Organisms: None Reported Past Surgical History: No Surgical Hx Reported Past Anesthesia/Blood Transfusion Reactions: No Reported Reaction Past Psychological History: No Psychological Hx Reported Smoking Status: Never smoker Past Alcohol Use History: None Reported Past Drug Use History: None Reported - Past Family History Mother Family Medical History: No Reported History Father Family Medical History: No Reported History General Exam Limitations: no limitations General appearance: alert, in no apparent distress Head exam: Present: other (Old scars) Eye exam: Present: normal appearance, PERRL. Absent: EOMI (Difficulty with gaze to the left) ENT exam: Present: normal oropharynx Neck exam: Present: normal inspection. Absent: tenderness, meningismus Respiratory exam: Present: normal lung sounds bilaterally Cardiovascular Exam: Present: regular rate, normal rhythm GI/Abdominal exam: Present: soft. Absent: tenderness Extremities exam: Present: other (Left arm contracted. Bilateral lower extremity assistive devices) Neurological exam: Present: alert, oriented X3, motor sensory deficit (Hemiparesis on the left side) Psychiatric exam: Present: normal affect, normal mood Skin exam: Present: normal color Course Vital Signs 07/29/22 18:09 Temperature 99.0 F Pulse Rate 84 Respiratory 18 Rate Blood Pressure 129/94 O2 Sat by Pulse 95 Oximetry - Reevaluation(s) Reevaluation #1: 07/29/22 18:53 Patient recently has decreased his Tegretol dose has discontinued his primidone, approximately weekly ago Medical Decision Making - Medical Decision Making Was pt. sent in by a medical professional or institution ([facility]INO Smith, LAWN TECHNICIAN, urgent care, hospital, or fpc...) When possible be specific @ -No Did you speak to anyone other than the patient for history (EMS, parent, family, police, friend...)? What history was obtained from this source @ -Family arrived and provided history the patient was unavailable as patient is somewhat a poor historian. This does include medications. Did you review nursing and triage notes (agree or disagree)? Why? @ -I reviewed and agree with nursing and triage notes Were old charts reviewed (outside hosp., previous admission, EMS record, old EK G, old radiological studies, urgent care reports/EKG's, fpc records)? Report findings @ -No old charts were reviewed Differential Diagnosis (chest pain, altered mental status, abdominal pain women, abdominal pain men, vaginal bleeding, weakness, fever, dyspnea, syncope, headache, dizziness, GI bleed, back pain, seizure, CVA, palpatations, mental health)? @ -not applicable EKG interpreted by me (3pts min.). @ -As above X-rays interpreted by me (1pt min.). @ -None done CT interpreted by me (1pt min.). @ -Report reviewed U/S interpreted by me (1pt. min.). @ -None done What testing was considered but not performed or refused? (CT, X-rays, U/S, labs)? Why? @ -None What meds were considered but not given or refused? Why? @ -None Did you discuss the management of the patient with other professionals (professionals i.e. DrCamille, PA, LAWN TECHNICIAN, lab, RT, psych nurse, hospice social worker, dip filler, teacher, combat systems officer, case repairer)? Give summary @ -No Was smoking cessation discussed for >3mins.? @ -No Was critical care preformed (if so, how long)? @ -No Were there social determinants of health that impacted care today? How? (Homelessness, low income, unemployed, alcoholism, drug addiction, transportation, low edu. Level, literacy, decrease access to med. care, shelter, rehab)? @ -No Was there de-escalation of care discussed even if they declined (Discuss DNR or withdrawal of care, Hospice)? DNR status @ -No What co-morbidities impacted this encounter? (DM, HTN, Smoking, COPD, CAD, Cancer, CVA, ARF, Chemo, Hep., AIDS, mental health diagnosis, sleep apnea, morbid obesity)? @ -None Was patient admitted / discharged? Hospital course, mention meds given and rout e, prescriptions, significant lab abnormalities, going to OR and other pertinent info. @ -Patient did have some nausea and will be provided Zofran. Patient otherwise resting comfortably in bed. Family updated on results and need for follow-up. They state patient did have MRI recently and will follow-up with his neurologist. Undiagnosed new problem with uncertain prognosis? @ -No Drug Therapy requiring intensive monitoring for toxicity (Heparin, Nitro, Insulin, Cardizem)? @ -No Were any procedures done? @ -No Diagnosis/symptom? @ -Breakthrough seizure Acute, or Chronic, or Acute on Chronic? @ -Acute Uncomplicated (without systemic symptoms) or Complicated (systemic symptoms)? @ -default Side effects of treatment? @ -No Exacerbation, Progression, or Severe Exacerbation? @ -No Poses a threat to life or bodily function? How? (Chest pain, USA, MD, pneumonia, PE, COPD, DKA, ARF, appy, cholecystitis, CVA, Diverticulitis, Homicidal, Suicidal, threat to staff... and all critical care pts) @ -No - Lab Data Result diagrams: 07/29/22 18:39 07/29/22 18:39 Lab Results 07/29/22 07/29/22 Range/Units 18:39 18:39 WBC 7.2 (3.8-10.6) k/uL RBC 4.68 (4.30-5.90) m/uL Hgb 13.7 (13.0-17.5) gm/dL Hct 40.6 (39.0-53.0) % MCV 86.8 (80.0-100.0) fL MCH 29.3 (25.0-35.0) pg MCHC 33.7 (31.0-37.0) g/dL RDW 12.5 (11.5-15.5) % Plt Count 223 (150-450) k/uL MPV 7.5 Neutrophils % 61 % Lymphocytes % 30 % Monocytes % 6 % Eosinophils % 0 % Basophils % 0 % Neutrophils # 4.4 (1.3-7.7) k/uL Lymphocytes # 2.2 (1.0-4.8) k/uL Monocytes # 0.4 (0-1.0) k/uL Eosinophils # 0.0 (0-0.7) k/uL Basophils # 0.0 (0-0.2) k/uL Sodium 134 L (137-145) mmol/L Potassium 3.9 (3.5-5.1) mmol/L Chloride 100 (98-107) mmol/L Carbon Dioxide 25 (22-30) mmol/L Anion Gap 9 mmol/L BUN 14 (9-20) mg/dL Creatinine 0.65 L (0.66-1.25) mg/dL Est GFR (CKD-EPI)AfAm >90 (>60 ml/min/1.73 sqM) Est GFR (CKD-EPI)NonAf >90 (>60 ml/min/1.73 sqM) Glucose 97 (74-99) mg/dL Calcium 8.3 L (8.4-10.2) mg/dL Magnesium 1.8 (1.6-2.3) mg/dL Total Bilirubin 0.3 (0.2-1.3) mg/dL AST 25 (17-59) U/L ALT 22 (4-49) U/L Alkaline Phosphatase 115 (38-126) U/L Total Protein 7.5 (6.3-8.2) g/dL Albumin 4.2 (3.5-5.0) g/dL Carbamazepine 9.7 ug/mL Serum Alcohol <10 mg/dL Disposition Clinical Impression: Generalized seizure Disposition: HOME SELF-CARE Condition: Stable Instructions (If sedation given, give patient instructions): Seizure/Epilepsy Discharge Instructions & Follow-Up Additional Instructions: Please do follow-up with patient's primary care physician and neurologist in the next couple days for recheck. You may resume previous medications for seizures if you desire. Return for illness, increase seizures, worsening or changing symptoms or other concerns. Is patient prescribed a controlled substance at d/c from ED?: No Referrals: Primitivo Singh MD [Primary Care Provider] - 1-2 days Time of Disposition: 20:08
[2022-07-29 18:56] LABS: Chloride 100 mmol/L (98-107)
[2022-07-29 18:59] LABS: ALT 22 U/L (4-49); AST 25 U/L (17-59); African American GFR (CKD) >90 (>60 ml/min/1.73 sqM); Albumin 4.2 g/dL (3.5-5.0); Alcohol <10 mg/dL; Alkaline Phosphatase 115 U/L (38-126); Anion Gap 9 mmol/L; Blood Urea Nitrogen 14 mg/dL (9-20); Calcium 8.3 mg/dL (8.4-10.2); Carbamazepine (Tegretol) 9.7 ug/mL; Carbon Dioxide 25 mmol/L (22-30); Glucose 97 mg/dL (74-99); Magnesium 1.8 mg/dL (1.6-2.3); Non-African American GFR(CKD) >90 (>60 ml/min/1.73 sqM); Potassium 3.9 mmol/L (3.5-5.1); Sodium 134 mmol/L (137-145); Total Bilirubin 0.3 mg/dL (0.2-1.3); Total Protein 7.5 g/dL (6.3-8.2)
--- NOTE | 2022-07-29 19:24 | CT ---
EXAMINATION TYPE: CT brain wo con CT DLP: 2206.4 mGycm, Automated exposure control for dose reduction was used. DATE OF EXAM: 07/29/2022 6:58 PM COMPARISON: None CLINICAL INDICATION:Male, 51 years old with history of seizure activity, seizure activity TECHNIQUE: Brain: Axial CT images of the brain were obtained with coronal and sagittal reformats created and rev iewed. Contrast used: None. Oral contrast used: None. FINDINGS: Motion limits evaluation. Brain: Extra-axial spaces: No abnormal extra-axial fluid collections. Ventricular system: The ventricles are dilated which is more than expected for patient's age. Cerebral parenchyma: No acute intraparenchymal hemorrhage or mass effect. The edgar-white junction is well differentiated. Cerebellum: Unremarkable. Mass effect: No evidence of midline shift. Intracranial vasculature: Atherosclerotic calcifications of the intracranial vessels. Soft tissues: Normal. Calvarium/osseous structures: No depressed skull fracture. Post interventional changes to the right f rontal skull. Hardware is in place. Paranasal sinuses and mastoid air cells: Mild opacification of the surgical bed Visualized orbits: Orbital contents are intact. IMPRESSION: 1. Limited evaluation of the skull secondary motion. No acute intracranial process. 2. Dilated lateral ventricles which is more than would be expected for patient's age. Consider furth er evaluation with MRI if patient is able to hold still. 3. Postintervention changes right frontal skull with hardware in place.
[2022-07-29 19:27] LABS: Basophils % (A) 0 %; Eosinophils % (A) 0 %; HCT 40.6 % (39.0-53.0); HGB 13.7 gm/dL (13.0-17.5); Lymphocytes # (A) 2.2 k/uL (1.0-4.8); Lymphocytes % (A) 30 %; MCH 29.3 pg (25.0-35.0); MCHC 33.7 g/dL (31.0-37.0); MCV 86.8 fL (80.0-100.0); Mean Platelet Volume 7.5; Monocytes # (A) 0.4 k/uL (0-1.0); Monocytes % (A) 6 %; Neutrophils # (A) 4.4 k/uL (1.3-7.7); Neutrophils % (A) 61 %; Platelet Count 223 k/uL (150-450); RBC 4.68 m/uL (4.30-5.90); RDW 12.5 % (11.5-15.5); WBC 7.2 k/uL (3.8-10.6)
[2022-07-29] MEDS ORDERED: ACETAMINOPHEN TAB 500 MG TAB PO STA (19:34)
[2022-07-29] MEDS ORDERED: ONDANSETRON 4 MG/2 ML VIAL IVP STA (20:05)
[2022-07-29 20:50] VITALS: BP 133/76; PULSE 98
== END 2022-07-29 20:50 | disposition home or self-care (01) ==
LOC: EC 18:07
DX: R56.9 Unspecified convulsions (principal); I10 Essential (primary) hypertension; Z79.899 Other long term (current) drug therapy; Z88.0 Allergy status to penicillin; Z88.8 Allergy status to other drugs, medicaments and biological substances
CPT/HCPCS: 36415; 80156; 80053; 83735; 85025; 70450; 99284; 96365; 96366; 96375; G0480; J2405; J1953; 80320